=== PATIENT | male | born 1990 | race Caucasian/White ===

== ENCOUNTER 2018-04-07 14:15 | Emergency (ER) | payer OTHER, SELFPAY ==
[2018-04-07 14:23] VITALS: BP 138/81; PULSE 127; RESP 20; TEMP 39.3; O2SAT 100; BMI 26.2
[2018-04-07] MEDS: ACETAMINOPHEN 325 MG TABLET 650 MG PO (14:40)
[2018-04-07 16:05] VITALS: TEMP 36.8
[2018-04-07] MEDS: ONDANSETRON 4 MG ODT PO (16:56)
--- NOTE | 2018-04-07 17:07 | ED_ITS ---
HPI - Fever <Michelle Clements PA-C - Last Filed: 04/07/18 21:39> General Chief Complaint: Fever Stated Complaint: fever high 102.7, chills, vomitting Time Seen by Provider: 04/07/18 15:16 Source: patient Mode of arrival: ambulatory Limitations: no limitations History of Present Illness HPI Narrative: this 27-year-old [employer] comes in with chills and sweats since Sunday night, then onset of headache and fever along with body aches yesterday. He states his highest temperature at home was 102.7. He also developed dry cough. He denies any acute dyspnea or wheeze. he has scratchy throat, but not particularly painful. He denies earache. He states that he has had some nausea and had an episode of vomiting this morning, so has not been taking much fluid. He denies abdominal pain. He denies any other new complaints on systems review. 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 He states that he is generally healthy without any chronic health conditions. Related Data Home Medications Medication Instructions Recorded Confirmed ibuprofen 04/07/18 Allergies Allergy/AdvReac Type Severity Reaction Status Date / Time No Known Drug Allergies Allergy Verified 04/07/18 14:25 Review of Systems <Michelle Clements PA-C - Last Filed: 04/07/18 21:39> Review of Systems ROS Unobtainable: All systems reviewed & are unremarkable except as noted in HPI and below PFSH <Michelle Clements PA-C - Last Filed: 04/07/18 21:39> Medical History Healthy adult male (Chronic) No pertinent family history (Chronic) Surgical History No pertinent past surgical history (Chronic) Social History Smoking Status: Never smoker Social History Smoking Status: Never smoker Exam <Michelle Clements PA-C - Last Filed: 04/07/18 21:39> Narrative Exam Narrative: GENERAL APPEARANCE: Patient sitting comfortably, in no distress. HEAD: No sinus TTP. EYES: PERRL, EOMI. EARS: Normal auditory canals, TMS intact with normal light reflexes. ORAL CAVITY: Normal oropharynx. THROAT: Moderate erythema and tonsillar enlargement without exudate NECK/THYROID: Neck supple, full range of motion, few anterior cervical nodes LUNGS: Clear to auscultation bilaterally, intermittent hoarse cough on exam. HEART: RRR without murmur, nl S1, S2, no S3 or S4. DERMATOLOGIC: No exanthem Initial Vital Signs Initial Vital Signs: Vital Signs Temperature 102.7 F H 04/07/18 14:23 Pulse Rate 127 H 04/07/18 14:23 Respiratory Rate 20 04/07/18 14:23 Blood Pressure 138/81 04/07/18 14:23 Pulse Oximetry 100 04/07/18 14:23 <Osman Quintanilla MD - Last Filed: 04/08/18 19:23> Initial Vital Signs Initial Vital Signs: Vital Signs Temperature 102.7 F H 04/07/18 14:23 Pulse Rate 127 H 04/07/18 14:23 Respiratory Rate 20 04/07/18 14:23 Blood Pressure 138/81 04/07/18 14:23 Pulse Oximetry 100 04/07/18 14:23 Course <Michelle Clements PA-C - Last Filed: 04/07/18 21:39> Orders Ordered: Discontinued Medications Acetaminophen (Tylenol) 650 mg PO NOW ONE Stop: 04/07/18 14:27 Last Admin: 04/07/18 14:40 Dose: 650 mg Ondansetron HCl (Zofran Odt) 4 mg PO NOW ONE Stop: 04/07/18 16:45 Last Admin: 04/07/18 16:56 Dose: 4 mg Ondansetron HCl (Zofran Odt Prepack) 1 bottle MISC SEEINSTR ONE Stop: 04/07/18 17:42 Last Admin: 04/07/18 17:58 Dose: 1 bottle Vital Signs - 8 hr 04/07/18 14:23 04/07/18 16:05 04/07/18 17:51 Temperature 102.7 F H 98.3 F 99.1 F Pulse Rate 127 H 105 H Respiratory Rate 20 18 Blood Pressure 138/81 Blood Pressure [Left Arm] 128/80 Pulse Oximetry 100 99 <Osman Quintanilla MD - Last Filed: 04/08/18 19:23> Orders Ordered: Discontinued Medications Acetaminophen (Tylenol) 650 mg PO NOW ONE Stop: 04/07/18 14:27 Last Admin: 04/07/18 14:40 Dose: 650 mg Ondansetron HCl (Zofran Odt) 4 mg PO NOW ONE Stop: 04/07/18 16:45 Last Admin: 04/07/18 16:56 Dose: 4 mg Ondansetron HCl (Zofran Odt Prepack) 1 bottle MISC SEEINSTR ONE Stop: 04/07/18 17:42 Last Admin: 04/07/18 17:58 Dose: 1 bottle Vital Signs - 8 hr 04/07/18 14:23 04/07/18 16:05 04/07/18 17:51 Temperature 102.7 F H 98.3 F 99.1 F Pulse Rate 127 H 105 H Respiratory Rate 20 18 Blood Pressure 138/81 Blood Pressure [Left Arm] 128/80 Pulse Oximetry 100 99 MDM - Fever <Michelle Clements PA-C - Last Filed: 04/07/18 21:39> Lab Data Attestation: I reviewed the patient's lab results. Lab Results 04/07/18 Range/Units 14:27 Influenza A & B (PCR) Positive, type a A (Negative) <Osman Quintanilla MD - Last Filed: 04/08/18 19:23> Lab Data Lab Results 04/07/18 Range/Units 14:27 Influenza A & B (PCR) Positive, type a A (Negative) Discharge Plan Departure Patient Disposition: Home Clinical Impression: Influenza Discharge Date/Time: 04/07/18 18:02 Interventions: ED Discharge Assessment Last Done: 04/07/18 18:02 Instructions: DI for Influenza -- Adult Activity Restrictions/Additional Instructions: please return as we talked about if you have any acutely worsening symptoms. Otherwise, please rest at home. Take 800 mg of ibuprofen every 8 hr to help with aches and fever, and add Tylenol every 4-6 hours as needed. You can take the Odansetron up to every 8 hr for the next day or so to help with nausea as needed. Please drink plenty of clear fluids and you can eat bland food as tolerated until you are feeling better. Remain off work until you are feeling better and your cough is improved. Prescriptions: No Action ibuprofen RF: 0 Referrals: Vida Melgar DO [Primary Care Provider] - Stand Alone Forms: Work Release Note <Osman Quintanilla MD - Last Filed: 04/08/18 19:23> Cosign ED Attending Coskirstenature Attestation: I was in the ER at the time the patient's care. I was available for verbal consultation or to see the patient directly. I agree with the assessment and treatment plan.
[2018-04-07 17:51] VITALS: BP 128/80; PULSE 105; RESP 18; TEMP 37.3; O2SAT 99
[2018-04-07] MEDS: ONDANSETRON 4 MG ODT PREPACK 1 BOTTLE MISC (17:58)
== END 2018-04-07 18:02 | disposition home or self-care (01) ==
PROVIDERS: Emergency Medicine; Emergency Provider Internal Medicine; PCP Family Medicine
DX: J11.1 Influenza due to unidentified influenza virus with other respiratory manifestations (principal)
CPT/HCPCS: 87400; 99282; 99283